=== PATIENT | female | born 1995 | race African-American/Black ===

== ENCOUNTER 2017-08-28 18:03 | Emergency (ER) | payer OTHER ==
--- NOTE | 2017-08-28 19:46 | ER Document Report ---
ED Dizziness/Weakness - General Chief Complaint: Dizziness Stated Complaint: DIZZINESS Time Seen by Provider: 08/28/17 19:16 Notes: Patient is a 21-year-old female who presents emergency department complaining of dizziness, blurred vision and right arm numbness lasting less than 15 minutes. Patient states that she has a history of these episodes approximately once a year. She denies any head trauma, previous history of migraines, seizures. She states she has not followed up with her primary care doctor about this nor is ever been evaluated by a neurologist. She denies headaches, any sinus congestion, nausea, vomiting, chest pain, shortness of breath, cough, abdominal pain, urinary frequency. TRAVEL OUTSIDE OF THE [place] IN LAST 30 DAYS: No - Related Data Allergies/Adverse Reactions: No Known Allergies Allergy (Unverified 08/28/17 18:09) Home Medications: Current Home Medications No Home Medications 08/28/17 [History] Past Medical History - Social History Smoking Status: Unknown if Ever Smoked Family History: Reviewed & Not Pertinent Patient has suicidal ideation: No Patient has homicidal ideation: No Renal/ Medical History: Denies: Hx Peritoneal Dialysis Surgical Hx: Negative Review of Systems - Review of Systems Constitutional: See HPI EENT: No symptoms reported Cardiovascular: See HPI Respiratory: See HPI Gastrointestinal: See HPI Neurological/Psychological: See HPI -: Yes All other systems reviewed and negative Physical Exam - Vital signs Vitals: Temp Pulse Resp BP Pulse Ox 98.6 F 63 16 121/66 98 08/28/17 18:11 08/28/17 18:11 08/28/17 18:11 08/28/17 18:11 08/28/17 18:11 - Notes Notes: PHYSICAL EXAM GENERAL: Alert, interacts well. HEAD: Normocephalic, atraumatic. EYES: Pupils equal, round, and reactive to light. Extraocular movements intact. ENT: Oral mucosa chapped lips dry with , tongue midline. NECK: Full range of motion. Supple. Trachea midline. LUNGS: Clear to auscultation bilaterally, no wheezes, rales, or rhonchi. No respiratory distress. HEART: Regular rate and rhythm. No murmurs, gallops, or rubs. ABDOMEN: Soft, nondistended, nontender. No guarding, rebound, or rigidity.. Bowel sounds present in all 4 quadrants. EXTREMITIES: Moves all 4 extremities spontaneously. No edema, radial and dorsalis pedis pulses 2/4 bilaterally. No cyanosis. NEUROLOGICAL: Normal cognition, alert oriented 4 GCS of 15. Normal speech cranial nerves intact without any evidence of facial palsy, gaze palsy. Cerebral coordination intact. Motor strength normal bilateral upper and lower extremities, sensory intact able to appreciate sharp versus dull sensation PSYCH: Normal affect, normal mood. SKIN: Warm, dry, normal turgor. No rashes or lesions noted. Course - Re-evaluation Re-evalutation: 08/28/17 21:22 Patient is a 21-year-old female who is hemodynamically stable, no acute distress afebrile. Absence of any focal neurological deficits without any evidence of bells palsy, infection, meningitis. PERC negative. Patient states she feels much better after IV fluids. Been no witnessed seizure activity. Given that patient has had similar symptoms over the past 6 years without any previous acute findings or hospital admissions, reasonable to discharge patient home with referrals for outpatient primary care. Patient agrees with plan and is stable for discharge home. - Vital Signs Vital signs: Temp Pulse Resp BP Pulse Ox 98.6 F 70 18 112/68 99 08/28/17 18:11 08/28/17 20:06 08/28/17 20:02 08/28/17 20:06 08/28/17 20:02 - Laboratory Result Diagrams: 08/28/17 20:00 08/28/17 20:00 Laboratory results interpreted by me: 08/28/17 20:13 Urine Ketones TRACE H Urine Urobilinogen 2.0 H Ur Leukocyte Esterase SMALL H - EKG Interpretation by [place] EKG shows normal: Sinus rhythm Rate: Normal Rhythm: NSR When compared to previous EKG there are: Previous EKG unavailable Discharge - Discharge Clinical Impression: Dizzy Condition: Good Disposition: HOME, SELF-CARE Additional Instructions: You were seen today for lightheadedness/dizziness. The exact cause of your symptoms is unclear but your workup here is reassuring without any concerning findings. Please follow closely with your primary care physician in the next 1- 3 days. Return if you pass out, have additional episodes of lightheadedness, develop weakness/numbness, have persistent vomiting, chest pain, shortness of breath or any other symptoms that are concerning to you Forms: Parent Work Note Referrals: TATIANA CALDERON MD [ACTIVE STAFF] - Follow up in 3-5 days
[2017-08-28 20:11] LABS: ABSOLUTE EOSINOPHILS # (AUTO) 0.1 10^3/uL (0.0-0.6); ABSOLUTE LYMPHOCYTES (AUTO) 1.9 10^3/uL (0.5-4.7); ABSOLUTE MONOCYTES (AUTO) 0.4 10^3/uL (0.1-1.4); ABSOLUTE NEUT (AUTO) 3.3 10^3/uL (1.7-8.2); BASOPHILS % (AUTO) 0.5 % (0-2); EOSINOPHILS % (AUTO) 1.8 % (0-6); HEMATOCRIT 40.4 % (36.0-47.0); HGB HCT DIFFERENCE 1.6; LYMPHOCYTES % (AUTO) 32.8 % (13-45); MEAN CORPUSCULAR HEMOGLOBIN 31.4 pg (27.0-33.4); MEAN CORPUSCULAR HGB CONC 34.8 g/dL (32.0-36.0); MEAN CORPUSCULAR VOLUME 90 fl (80-97); MONOCYTES % (AUTO) 6.2 % (3-13); RED BLOOD COUNT 4.47 10^6/uL (3.72-5.28); RED CELL DISTRIBUTION WIDTH 13.9 % (11.5-14.0); SEGMENTED NEUTROPHILS % (AUTO) 58.7 % (42-78); WHITE BLOOD COUNT 5.7 10^3/uL (4.0-10.5)
[2017-08-28 20:29] LABS: ANION GAP 11 (5-19); BLOOD UREA NITROGEN 17 mg/dL (7-20); CALCIUM 9.3 mg/dL (8.4-10.2); CARBON DIOXIDE 24 mmol/L (22-30); CHLORIDE 107 mmol/L (98-107); GLUCOSE 81 mg/dL (75-110); POTASSIUM 4.2 mmol/L (3.6-5.0); SODIUM 142.4 mmol/L (137-145)
[2017-08-28 20:36] LABS: APPEARANCE,URINE SLIGHTLY-CLOUDY; BILIRUBIN,URINE NEGATIVE (NEGATIVE); GLUCOSE, URINE NEGATIVE (NEGATIVE); KETONES,URINE TRACE mg/dL (NEGATIVE); LEUKOCYTE ESTERASE,URINE SMALL (NEGATIVE); NITRITE,URINE NEGATIVE (NEGATIVE); PROTEIN,URINE NEGATIVE (NEGATIVE); URINE SPECIFIC GRAVITY 1.031
[2017-08-28] MEDS ORDERED: NORMAL SALINE 1000 ML 1,000 ML IV PRN (20:47)
[2017-08-28 21:46] VITALS: BP 107/59
--- NOTE | 2017-08-29 09:40 | EKG REPORT ---
SEVERITY:- BORDERLINE ECG - SINUS RHYTHM PROBABLE LEFT ATRIAL ABNORMALITY : Confirmed by: Fallon Mcclain 29-Aug-2017 09:39:56
== END 2017-08-28 21:45 | disposition home or self-care (01) ==
LOC: EDBD → ER 18:03
DX: R42 Dizziness and giddiness (principal); H53.8 Other visual disturbances; R20.0 Anesthesia of skin
CPT/HCPCS: 93005; 99284; 96360; 36415; 87086; 85025; 81025; 80048; 81001; 93010; J7030